=== PATIENT | male | born 1950 ===

== ENCOUNTER 2022-06-22 05:48 | Observation (INO) ==
[2022-06-22] MEDS ORDERED: Famotidine IV 10 MG/ML 2 ml VIAL (20 mg) IV ONE (06:00)
[2022-06-22] MEDS ORDERED: Buffered Lidocaine 1% SYRIN 1 ml INTRADERM ONE (06:00)
[2022-06-22] MEDS ORDERED: Lactated Ringers 1000 ml BAG 1,000 ML IV SCH (06:00)
[2022-06-22] MEDS ORDERED: Scopolamine 1 mg/72hr PATCH TRANSDERM ONE (06:00)
[2022-06-22] MEDS ORDERED: ceFAZolin 2 GM PREMIX 2 GM/50 ML BAG ONE (06:17)
[2022-06-22] MEDS ORDERED: Famotidine IV 10 MG/ML 2 ml VIAL (20 mg) ONE (06:17)
[2022-06-22] MEDS ORDERED: Scopolamine 1 mg/72hr PATCH ONE (06:17)
[2022-06-22] MEDS ORDERED: Heparin 5000 UNITS/ML 1 mL VIAL ONE (06:21)
[2022-06-22] MEDS ORDERED: Midazolam 2 mg/2 ml VIAL 1 mg/ml 2 ml VIAL (2 mg) ONE (06:38)
[2022-06-22] MEDS ORDERED: Ondansetron 4 mg VIAL 2 MG/ML 2 ml VIAL ONE (06:38)
[2022-06-22] MEDS ORDERED: fentaNYL 100 mcg/2 ml 50 MCG/ML VIAL ONE ×2 (06:38→11:00)
[2022-06-22] MEDS ORDERED: Rocuronium 50 mg VIAL 10 mg/ml 5 ml VIAL (50 mg) ONE ×2 (06:38→08:36)
[2022-06-22] MEDS ORDERED: Propofol 10 MG/ML 20 ML BTL ONE (06:38)
[2022-06-22] MEDS ORDERED: Lidocaine 2% PF 5 ML VIAL ONE (06:38)
[2022-06-22] MEDS ORDERED: Dexamethasone IV 4 MG/ML VIAL 1 ml VIAL ONE (06:38)
[2022-06-22] MEDS ORDERED: Bupivacaine 0.25% w/EPI 10 ML SDV ONE (07:07)
[2022-06-22] MEDS ORDERED: Acetaminophen IV 1 GM/100ML 1,000 MG/100 ML BAG IV ONE (07:48)
[2022-06-22] MEDS ORDERED: Phenylephrine IV 10 MG/ML 1 ml VIAL ONE (08:02)
[2022-06-22] MEDS ORDERED: HYDROmorphone 0.5 MG/0.5 ML SYRINGE ONE (09:31)
[2022-06-22] MEDS ORDERED: fentaNYL 100 mcg/2 ml 50 MCG/ML VIAL IV PRN (10:04)
[2022-06-22] MEDS ORDERED: Naloxone 0.4 mg VIAL 0.4 mg/ml 1 ml VIAL IV PRN (10:04)
[2022-06-22] MEDS ORDERED: Prochlorperazine 5 mg/ml 2 ml VIAL (10 mg) IV PRN (10:04)
[2022-06-22] MEDS ORDERED: Ondansetron 4 mg VIAL 2 MG/ML 2 ml VIAL IV PRN ×2 (10:04→10:59)
[2022-06-22] MEDS ORDERED: HYDROmorphone 0.5 MG/0.5 ML SYRINGE IV SLOW PU PRN (10:59)
[2022-06-22] MEDS: Lactated Ringers 1000 ml BAG 1,000 ML IV SCH (12:22)
[2022-06-22] MEDS ORDERED: HYDROcodone/ACET. 7.5/325 LIQ 15 ML UDC PO PRN (19:42)
[2022-06-23] MEDS: Lactated Ringers 1000 ml BAG 1,000 ML IV SCH (01:03)
[2022-06-23 05:48] LABS: Hematocrit 40 % (42-52); Hemoglobin 13.1 g/dL (14.0-18.0); Mean Corpuscular HGB Conc 33 g/dL (31-36); Mean Corpuscular Hemoglobin 30 pg (27-31); Mean Corpuscular Volume 90 fL (80-94); Mean Platelet Volume 8.1 fL (7.4-10.4); Platelet Count 127 10^3/uL (150-450); Red Blood Count 4.41 10^6 /uL (4.18-5.48); Red Cell Distribution Width 14 % (10-15); White Blood Count 8.5 10^3/uL (3.5-10.8)
[2022-06-23 05:53] LABS: ABS Monocytes 0.9 10^3/ul (0-0.8); ABS Neutrophils 6.4 10^3/ul (1.5-7.7); Lymphocyte % 11.6 %
[2022-06-23 06:04] LABS: Calcium 9.4 mg/dL (8.6-10.3); Potassium 4.1 mmol/L (3.5-5.0); eGFR CKD-EPI 96.7 (>60)
[2022-06-23 11:23] VITALS: BP 159/83
== END 2022-06-23 12:25 | disposition home or self-care (01) ==
LOC: SSU 05:48 → OR 05:48
PROVIDERS: ADMIT Surgery; ATTEND Surgery